=== PATIENT | female | born 1985 | race Asian ===

== ENCOUNTER 2017-06-19 16:59 | Emergency (ER) | payer OTHER ==
[~2017-06-19] VITALS: Ht 167.6 cm; Wt 75.3 kg
[2017-06-19 17:57] LABS: PLATELET COUNT 344 K/uL (152-353)
== END 2017-06-19 19:02 | disposition home or self-care (01) ==
LOC: ED 16:59
DX: J06.9 Acute upper respiratory infection, unspecified (principal)
CPT/HCPCS: 81025; 85027; 99283

== ENCOUNTER 2017-10-15 18:07 | Outpatient (CLI) | payer OTHER | END 2017-10-15 23:39 | disposition home or self-care (01) | LOC: RAD 18:07 | DX: M79.672 Pain in left foot (principal) ==

== ENCOUNTER 2018-01-21 14:33 | Emergency (ER) | payer OTHER ==
[~2018-01-21] VITALS: Ht 167.6 cm; Wt 72.6 kg
[2018-01-21 14:40] VITALS: BP 129/76; TEMP 98.1
== END 2018-01-21 17:12 | disposition home or self-care (01) ==
LOC: ED 14:33
DX: M79.672 Pain in left foot (principal)
CPT/HCPCS: 99281

== ENCOUNTER 2018-02-19 09:00 | Outpatient (CLI) | payer OTHER | END 2018-02-19 19:05 | disposition home or self-care (01) | LOC: MRI 09:00 | DX: R60.0 Localized edema (principal); M79.672 Pain in left foot ==

== ENCOUNTER 2018-08-02 12:07 | Emergency (ER) | payer OTHER ==
[~2018-08-02] VITALS: Ht 167.6 cm; Wt 74.8 kg
[2018-08-02 12:21] VITALS: TEMP 98.5
[2018-08-02 14:05] VITALS: BP 122/72
== END 2018-08-02 14:05 | disposition home or self-care (01) ==
LOC: ED 12:07
DX: M62.838 Other muscle spasm (principal); S16.1XXA Strain of muscle, fascia and tendon at neck level, initial encounter; X50.9XXA Other and unspecified overexertion or strenuous movements or postures, initial encounter; Y92.239 Unspecified place in hospital as the place of occurrence of the external cause
CPT/HCPCS: 96372; 99282; J1885

== ENCOUNTER 2018-10-20 08:02 | Outpatient (CLI) | payer OTHER | END 2018-10-20 08:03 | disposition short-term general hospital (02) | LOC: AMB 08:02 | DX: R55 Syncope and collapse (principal) | CPT/HCPCS: A0425; A0429 ==

== ENCOUNTER 2018-10-20 08:05 | Emergency (ER) | payer OTHER ==
[~2018-10-20] VITALS: Ht 167.6 cm; Wt 74.8 kg
[2018-10-20 09:02] LABS: PLATELET COUNT 311 K/uL (152-353)
[2018-10-20 09:13] LABS: POTASSIUM 3.2 mmol/L (3.6-5.2)
[2018-10-20 12:05] VITALS: BP 139/86; TEMP 98
== END 2018-10-20 13:21 | disposition home or self-care (01) ==
LOC: ED 08:11
PROVIDERS: Family Medicine
DX: R55 Syncope and collapse (principal); E87.6 Hypokalemia
CPT/HCPCS: 36415; 80053; 81000; 81025; 85027; 99283

== ENCOUNTER 2018-10-22 16:00 | Outpatient (CLI) | payer OTHER ==
[2018-10-22 16:16] LABS: PLATELET COUNT 362 K/uL (152-353)
[2018-10-22 16:43] LABS: POTASSIUM 3.6 mmol/L (3.6-5.2)
== END 2018-10-22 23:22 | disposition home or self-care (01) ==
LOC: LAB 16:00
PROVIDERS: Internal Medicine
DX: R55 Syncope and collapse (principal)
CPT/HCPCS: 36415; 80053; 80061; 81000; 84439; 84443; 85027; 85379